=== PATIENT | male | born 1950 | race Caucasian/White ===

== ENCOUNTER 2017-09-01 08:07 | Day surgery (SDC) | payer OTHER ==
[2017-09-01] MEDS ORDERED: NS 1,000 ML IV ONE (08:15)
[2017-09-01] MEDS ORDERED: FAMOTIDINE 20 MG TAB PO ONE (08:15)
[2017-09-01] MEDS ORDERED: DIAZEPAM 5 MG TAB PO ONE (08:15)
[2017-09-01] MEDS ORDERED: ASPIRIN EC 325 MG TAB PO ONE ×2 (08:15→08:40)
[2017-09-01] MEDS ORDERED: diphenhydrAMINE 25 MG CAP PO ONE ×2 (08:15→08:40)
[2017-09-01] MEDS ORDERED: DIAZEPAM 5 MG TAB ONE (08:40)
[2017-09-01] MEDS ORDERED: FAMOTIDINE 20 MG TAB ONE (08:40)
--- NOTE | 2017-09-01 08:40 | CPEKG ---
Heart Rate: 60 RR Interval: 1000 P-R Interval: 168 QRSD Interval: 124 QT Interval: 416 QTC Interval: 416 P [place]: 12 QRS [place]: 47 T Wave [place]: -20 EKG Severity - ABNORMAL ECG - EKG Impression: SINUS RHYTHM EKG Impression: NONSPECIFIC INTRAVENTRICULAR CONDUCTION DELAY EKG Impression: PROBABLE INFERIOR INFARCT, AGE INDETERMINATE EKG Impression: PROBABLE LATERAL INFARCT, OLD EKG Impression: COMPARED WITH 08/27/2017 NO SIGNIFICANT CHANGE Electronically Signed By: Marilu Hines 02-Sep-2017 10:13:09
[2017-09-01 09:22] LABS: PLATELET COUNT 162 10^3/uL (150-400)
[2017-09-01 09:30] LABS: INR 1.08 (0.83-1.16); PROTIME(PATIENT) 14.2 SEC (12.0-15.0)
[2017-09-01] MEDS ORDERED: LIDOCAINE 1% 300 MG/30 ML SDV ONE (09:48)
[2017-09-01] MEDS ORDERED: fentaNYL 100 MCG/2 ML INJ ONE (09:49)
[2017-09-01] MEDS ORDERED: MIDAZOLAM 2 MG/2 ML VIAL ONE ×2 (09:49→09:50)
[2017-09-01] MEDS ORDERED: IOPAMIDOL (ISOVUE-370) 150 ML BTL IV ONE (09:50)
[2017-09-01] MEDS ORDERED: VERAPAMIL 5 MG/2 ML VIAL ONE (09:50)
[2017-09-01] MEDS ORDERED: HEPARIN 10,000 UNIT/10 ML MDV (1,000 UNIT/ML) ONE (09:50)
--- NOTE | 2017-09-01 09:58 | PDHPUP ---
History & Physical Update H&P update statement: This history and physical update is based on an assessment of the patient which was completed after admission or registration (within 24 hours), but prior to the surgery/procedure. H&P update: H&P reviewed & patient examined, no change in patient's condition since H&P completed
--- NOTE | 2017-09-01 09:59 | PDPROPOC ---
Sedation Plan of Care Sedation Plan of Care: vital signs stable, mental status noted, patient educated of risks, benefits, alternatives, patient can tolerate sedation ASA Classification: ASA 3 Planned drugs: fentanyl, midazolam Mallampati Score: Class 2 Mallampati Reference Image: Patient passed 3-3-2 rule?: Yes
[2017-09-01] MEDS ORDERED: BIVALIRUDIN 250 MG/5 ML VIAL IV ONE (10:38)
[2017-09-01] MEDS ORDERED: ATROPINE SULFATE 1 MG/10 ML SYR IVP PRN (11:20)
[2017-09-01] MEDS ORDERED: NITROGLYCERIN 0.4 MG BTL SL PRN (11:20)
[2017-09-01] MEDS ORDERED: ONDANSETRON 4 MG/2 ML VIAL IVP PRN (11:20)
--- NOTE | 2017-09-01 11:36 | PDDXCAT ---
Diagnostic Cath Note - . Date: 09/01/17 Mill Feeder: Dylan Indication: CCC Class III and IV angina on medical treatment, High-risk criteria on noninvasive testing (choose option below) High-risk criteria on non-invasive testing: stress-induced large perfusion defect (particularly if anterior) - Procedure Access: right groin Procedure: left heart catheterization, coronary angiography, left ventriculogram - Materials Left Heart Cath size: 6F Left Heart Cath materials: standard multipack (JL4, JR4, pigtail) - Findings-Left Heart Catheterization LM: Normal. LAD: Mid-LAD has a "napkin-ring" stenosis of 60-70% just after origin of third diagonal branch. Second diagonal branch has a high-grade ostial stenosis. LCX: Small system with mild irregularities. RCA: Proximal RCA 100% with vigorous felz-ea-vltas collateral supply to distal vessel. LVEF: 45-50% Wall motion: Severe inferior hypokinesis. Complications: None Closure method: Angioseal Assessment: 1) Ischemic cardiomyopathy with mildly reduced LV systolic function. 2) Coronary artery disease as described above. Plan: Will schedule patient to see CT surgery in clinic to discuss CABG.
== END 2017-09-01 15:43 | disposition home or self-care (01) ==
LOC: FCATH 08:07
PROVIDERS: ATTEND Internal Medicine Interventional Cardiology
PROC: 4A023N7 Measurement of Cardiac Sampling and Pressure, Left Heart, Percutaneous Approach (ICD-10-PCS; principal; 2017-09-01)
PROC: B2151ZZ Fluoroscopy of Left Heart using Low Osmolar Contrast (ICD-10-PCS; principal; 2017-09-01)
PROC: B2111ZZ Fluoroscopy of Multiple Coronary Arteries using Low Osmolar Contrast (ICD-10-PCS; principal; 2017-09-01)
DX: I25.5 Ischemic cardiomyopathy (principal); I25.119 Atherosclerotic heart disease of native coronary artery with unspecified angina pectoris; R94.39 Abnormal result of other cardiovascular function study; I10 Essential (primary) hypertension; E78.5 Hyperlipidemia, unspecified; E11.9 Type 2 diabetes mellitus without complications; G47.33 Obstructive sleep apnea (adult) (pediatric); R16.1 Splenomegaly, not elsewhere classified; I87.2 Venous insufficiency (chronic) (peripheral); N40.0 Benign prostatic hyperplasia without lower urinary tract symptoms; K21.9 Gastro-esophageal reflux disease without esophagitis; M10.9 Gout, unspecified; Z79.82 Long term (current) use of aspirin; Z79.84 Long term (current) use of oral hypoglycemic drugs; Z82.49 Family history of ischemic heart disease and other diseases of the circulatory system; Z82.3 Family history of stroke; Z95.5 Presence of coronary angioplasty implant and graft
CPT/HCPCS: C1760; J0583; J1644; J2250; J3010; Q9967

== ENCOUNTER → 2017-09-26 | Outpatient (CLI) | payer OTHER | LOC: FIMAGING 13:54 | PROVIDERS: ATTEND Thoracic Surgery (Cardiothoracic Vascular Surgery) | DX: Z03.89 Encounter for observation for other suspected diseases and conditions ruled out (principal) ==

== ENCOUNTER 2017-09-28 05:40 | Inpatient (IN) | payer OTHER ==
[2017-09-28] MEDS ORDERED: VERAPAMIL 5 MG, NITROGLYCERIN 2.5 MG, HEPARIN 500 UNIT, SODIUM BICARBONATE 0.2 MEQ in L... MISC ONE (06:00)
[2017-09-28] MEDS ORDERED: AMINOCAPROIC ACID 5 GM/20 ML VIAL IV ONE (06:00)
[2017-09-28] MEDS ORDERED: NOREPINEPHRINE BITARTRATE 16 MG in NS 250 ML IV ONE (06:00)
[2017-09-28] MEDS ORDERED: INSULIN REGULAR HUMAN 100 UNIT in NS 100 ML IV ONE (06:00)
[2017-09-28] MEDS ORDERED: MANNITOL 25% 12.5 GM/50 ML VIAL IVP ONE (06:00)
[2017-09-28] MEDS ORDERED: SODIUM BICARBONATE 20 MEQ, LIDOCAINE 1% 10 ML in NORMOSOL-R 1,000 ML MISC ONE (06:00)
[2017-09-28] MEDS ORDERED: PHENYLEPHRINE HCL 50 MG in NS 250 ML IV ONE (06:00)
[2017-09-28] MEDS ORDERED: LIDOCAINE 1% 2 ML INJ ID PRN (06:17)
[2017-09-28] MEDS ORDERED: LR 1,000 ML IV ONE (06:17)
[2017-09-28] MEDS ORDERED: CITRATE DEXTROSE SOLN 500 ML BAG MISC ONE (06:17)
[2017-09-28] MEDS ORDERED: ceFAZolin 2 GM/DEXTROSE 100 ML IV ONE (06:17)
[2017-09-28] MEDS ORDERED: niCARdipine/NACL 200 ML IV ONE (06:17)
[2017-09-28] MEDS ORDERED: MUPIROCIN 2% 22 GM OINT NS ONE (06:17)
[2017-09-28] MEDS ORDERED: CARBOXYMETHYLCELLULOSE 1% 0.4 ML DROPERETTE EACHEYE PRN (06:25)
[2017-09-28] MEDS ORDERED: SODIUM CL NASAL GEL 14.1 GM TUBE TP PRN (06:25)
--- NOTE | 2017-09-28 06:28 | PDHPUP ---
History & Physical Update H&P update statement: This history and physical update is based on an assessment of the patient which was completed after admission or registration (within 24 hours), but prior to the surgery/procedure. H&P update: H&P reviewed & patient examined, changes noted (daily exertional angina relieved by rest, no NTG taken. Increased edema of low legs, R>L. No assoc wt gain, orthopnea, PND, inc dyspnea)
[2017-09-28] MEDS ORDERED: NA BICARBONATE 50 MEQ/50 ML VIAL ONE (06:37)
[2017-09-28] MEDS ORDERED: PROTAMINE SULFATE 50 MG/5 ML VIAL IVP ONE (06:37)
[2017-09-28] MEDS ORDERED: MILRINONE/DEXTROSE/100 ML BAG IV ONE (06:37)
[2017-09-28] MEDS ORDERED: CALCIUM CHLORIDE 1 GM/10 ML INJ ONE ×2 (06:37→06:40)
[2017-09-28] MEDS ORDERED: HEPARIN 10,000 UNIT/10 ML MDV (1,000 UNIT/ML) ONE ×2 (06:38→06:41)
[2017-09-28] MEDS ORDERED: DOPamine/DEXTROSE 400 MG/250 ML BAG IV ONE (06:38)
[2017-09-28] MEDS ORDERED: niCARdipine/NACL/200 ML BAG IV ONE (06:38)
[2017-09-28] MEDS ORDERED: AMIODARONE HCL 150 MG/3 ML VIAL ONE ×2 (06:39→06:41)
[2017-09-28] MEDS ORDERED: ceFAZolin 1 GM VIAL ONE (06:39)
[2017-09-28] MEDS ORDERED: ADENOSINE 6 MG/2 ML VIAL ONE (06:39)
[2017-09-28] MEDS ORDERED: NITROGLYCERIN/D5W 50 MG/250 ML BOTTLE IV ONE (06:39)
[2017-09-28] MEDS ORDERED: ALBUMIN 5% 250 ML BOTTLE IV ONE (06:40)
[2017-09-28] MEDS ORDERED: LIDOCAINE 2% 100 MG/5 ML SYR ONE (06:40)
[2017-09-28] MEDS ORDERED: CITRATE DEXTROSE SOLN 500 ML BAG ONE (06:41)
[2017-09-28] MEDS ORDERED: MAGNESIUM SULFATE 1 GM/2 ML VIAL ONE (06:41)
[2017-09-28] MEDS ORDERED: methylPREDNISolone SOD SUCC 1 GM/8 ML VIAL ONE (06:41)
[2017-09-28] MEDS ORDERED: MINERAL OIL 10 ML VIAL ONE (06:42)
[2017-09-28] MEDS ORDERED: VERAPAMIL 5 MG/2 ML VIAL ONE (06:42)
[2017-09-28] MEDS ORDERED: PAPAVERINE HCL 60 MG/2 ML SDV ONE (06:42)
[2017-09-28] MEDS ORDERED: MIDAZOLAM 2 MG/2 ML VIAL IVP ONE (06:53)
--- NOTE | 2017-09-28 07:03 | PDANEPAE ---
ANE History of Present Illness here for CABG ANE Past Medical History - Cardiovascular History Hx Hypertension: Yes Hx Arrhythmias: No Hx Chest Pain: No Hx Coronary Artery / Peripheral Vascular Disease: Yes Hx CHF / Valvular Disease: No Hx Palpitations: No Cardiovascular History Comment: increased chest pressure daily since cardiac cath - Pulmonary History Hx COPD: No Hx Asthma/Reactive Airway Disease: No Hx Recent Upper Respiratory Infection: No Hx Oxygen in Use at Home: No Hx Sleep Apnea: Yes Sleep Apnea Screening Result - Last Documented: Positive Pulmonary History Comment: hx of chronic broncitis - Neurologic History Hx Cerebrovascular Accident: No Hx Seizures: No Hx Dementia: No - Endocrine History Hx Diabetes: Yes Hypothyroid: No Hyperthyroid: No Endocrine History Comment: type 11 - Renal History Hx Renal Disorders: No - Liver History Hx Hepatic Disorders: No - Neurological & Psychiatric Hx Hx Neurological and Psychiatric Disorders: No - Cancer History Hx Cancer: No - Congenital Disorder History Hx Congenital Disorders: Yes Congenital History Comment: lower extremity edema - GI History Hx Gastrointestinal Disorders: No - Other Health History Other Health History: enlarged spleen - Chronic Pain History Chronic Pain: Yes (knee problems) - Surgical History Prior Surgeries: megacolon sx 2002. cardiac cath 2018 ANE Review of Systems Review of systems is: negative Review of Systems: - Exercise capacity METS (RN): 4 METS ANE Patient History - Allergies Allergies/Adverse Reactions: morphine Allergy (Verified 09/28/17 06:45) Other-Enter Comments - Home Medications Home medications: home medication list seen and reviewed Home Medications: Carvedilol [Coreg (*)] 25 mg PO BIDMEAL 08/27/15 [Last Taken 09/27/17 16:00] Glimepiride [Amaryl 2 MG (*)] 2 mg PO DAILY 08/27/15 [Last Taken 09/27/17 08:00] Lisinopril [Zestril 40 mg (*)] 40 mg PO HS 08/27/15 [Last Taken 09/27/17 16:00] [place]-3 Fatty Acids [Fish Oil 1000 mg (*)] 1,000 mg PO BID 08/27/15 [Last Taken 09/27/17 17:00] Potassium Cl [Klor-Con 10 meq (RX)] 10 meq PO HS 08/27/15 [Last Taken 09/27/17 16:00] Tamsulosin HCl [Flomax 0.4 MG (*)] 0.8 mg PO DAILY 08/27/15 [Last Taken 08:00] Atorvastatin Calcium [Lipitor 40 mg (*)] 80 mg PO HS 08/25/17 [Last Taken 16:00] Carboxymethylcellulose 1% [Refresh Celluvisc (*)] 1 drop EACHEYE DAILY PRN 08/25 [Last Taken 09/28/17 04:00] Clopidogrel Bisulfate [Plavix (*)] 75 mg PO HS 08/25/17 [Last Taken 08/31/17 21: 00] Furosemide [Lasix 40 MG (*)] 60 mg PO DAILY 08/25/17 [Last Taken 09/27/17 08:00] Isosorbide Mononitrate [Imdur 30 mg (*)] 30 mg PO DAILY 08/25/17 [Last Taken 07/12 08:00] Naproxen Sodium [Aleve 220 MG (*)] 220 mg PO BID PRN 08/25/17 [Last Taken 21:00] Nitroglycerin [Nitrostat 0.4 mg (*)] 0.4 mg SL Q5M PRN 08/25/17 [Last Taken Unknown] metFORMIN HCL [Glucophage 1000 mg] 1,000 mg PO BIDMEAL 09/01/17 [Last Taken 05/14] Aspirin [Aspirin 81mg (*)] 81 mg PO DAILY 09/20/17 [Last Taken 09/27/17 08:00] Herbals/Supplements -Info Only 1 ea PO DAILY 09/20/17 [Last Taken 09/27/17 16:00 ] Sodium Chloride [[place]] 1 spray NS BID PRN 09/20/17 [Last Taken 09/27/17 21:00] - NPO status NPO Status: no food or drink >8 hours NPO Since - Liquids (Date): 09/27/17 NPO Since - Liquids (Time): 20:00 NPO Since - Solids (Date): 09/27/17 NPO Since - Solids (Time): 20:00 - Smoking Hx Smoking Status: Never smoked - Family Anes Hx Family Hx Anesthesia Complications: none ANE Labs/Vital Signs - Vital Signs Vital Signs: reviewed preoperatively; see RN documention for details Blood Pressure: 160/94 Heart Rate: 59 Respiratory Rate: 12 O2 Sat (%): 95 Height: 173.99 cm Weight: 99.79 kg ANE Physical Exam - Airway Neck exam: FROM Mallampati Score: Class 1 Mouth exam: normal dental/mouth exam - Pulmonary Pulmonary: no respiratory distress - Cardiovascular Cardiovascular: regular rate and rhythym - ASA Status ASA Status: IV ANE Anesthesia Plan Anesthesia Plan: general endotracheal anesthesia Lines/Monitors: arterial line, central line, HIGINIO
[2017-09-28] MEDS ORDERED: fentaNYL 250 MCG/5 ML INJ ONE (07:05)
[2017-09-28] MEDS ORDERED: PROPOFOL/EMULSION 500 MG/50 ML BOTTLE IV ONE (07:08)
[2017-09-28] MEDS ORDERED: PHENYLEPHRINE HCL 100 MCG/ML SYR ONE (07:09)
[2017-09-28] MEDS ORDERED: ESMOLOL HCL 100 MG/10 ML VIAL IV ONE (07:09)
[2017-09-28] MEDS ORDERED: ROCURONIUM 100 MG/10 ML VIAL ONE (07:09)
[2017-09-28] MEDS ORDERED: DEXAMETHASONE 4 MG/ML VIAL ONE ×2 (08:20→10:32)
[2017-09-28] MEDS ORDERED: DEXMEDETOMIDINE HCL 400 MCG in NS 100 ML IV ONE (11:00)
[2017-09-28] MEDS ORDERED: DEXMEDETOMIDINE IN 0.9 % NACL 100 ML IV ONE (11:00)
[2017-09-28] MEDS ORDERED: PROPOFOL 200 MG/20 ML VIAL ONE (11:01)
[2017-09-28] MEDS ORDERED: HYDROmorphONE/DILAUDID 2 MG/ML INJ ONE (11:20)
[2017-09-28] MEDS ORDERED: ACETAMINOPHEN 650 MG SUPP PR PRN (12:08)
[2017-09-28] MEDS ORDERED: POTASSIUM Cl (KCl) 50 ML IV PRN (12:08)
[2017-09-28] MEDS ORDERED: BISACODYL 10 MG SUPP PR PRN (12:08)
[2017-09-28] MEDS ORDERED: METOCLOPRAMIDE 10 MG/2 ML VIAL IVP PRN (12:08)
[2017-09-28] MEDS ORDERED: POLYETHYLENE GLYCOL 3350 17 GM PKT PO PRN (12:08)
[2017-09-28] MEDS ORDERED: D50W 25 GM/50 ML SYR IVP PRN (12:08)
[2017-09-28] MEDS ORDERED: ONDANSETRON 4 MG/2 ML VIAL IVP PRN (12:08)
[2017-09-28] MEDS ORDERED: ONDANSETRON DISINTEGRATING 4 MG TAB PO PRN (12:08)
[2017-09-28] MEDS ORDERED: MAGNESIUM HYDROXIDE 30 ML UDCUP PO PRN (12:08)
[2017-09-28] MEDS ORDERED: LACTULOSE 20 GM/30 ML UDCUP PO PRN (12:08)
[2017-09-28] MEDS ORDERED: ACETAMINOPHEN 325 MG TAB PO PRN (12:08)
[2017-09-28] MEDS ORDERED: ALBUMIN 5% 250 ML IV PRN (12:08)
[2017-09-28] MEDS ORDERED: PANTOPRAZOLE SODIUM 40 MG VIAL IVP ONE (12:08)
[2017-09-28] MEDS ORDERED: CEPACOL LOZENGE PO PRN (12:08)
[2017-09-28] MEDS ORDERED: MEPERIDINE 25 MG/0.5 ML AMP IVP PRN (12:08)
[2017-09-28] MEDS ORDERED: NS 1,000 ML IV SCH (12:15)
[2017-09-28] MEDS ORDERED: INSULIN REGULAR HUMAN 100 UNIT in NS 100 ML IV SCH (12:30)
[2017-09-28] MEDS: fentaNYL 100 MCG/2 ML INJ IVP PRN ×2 (12:40→21:41)
--- NOTE | 2017-09-28 12:52 | CPEKG ---
Heart Rate: 57 RR Interval: 1053 P-R Interval: 188 QRSD Interval: 120 QT Interval: 484 QTC Interval: 472 P [place]: 45 QRS [place]: 12 T Wave [place]: -8 EKG Severity - ABNORMAL ECG - EKG Impression: SINUS RHYTHM EKG Impression: IVCD, CONSIDER ATYPICAL RBBB EKG Impression: PROBABLE INFERIOR INFARCT, AGE INDETERMINATE Electronically Signed By: Jann Richardson 05-Oct-2017 16:34:46
[2017-09-28] MEDS ORDERED: NITROGLYCERIN/DEXTROSE 250 ML IV PRN (13:00)
--- NOTE | 2017-09-28 13:14 | GOP ---
[f rep st] OPERATIVE REPORT DATE OF OPERATION: 09/28/2017 SURGEON: Jann Becerra DO AUDIO/VISUAL MANAGER: ARISTEO Li ANESTHESIOLOGIST: Robert Sahu MD PREOPERATIVE DIAGNOSIS: Congestive heart failure and ischemic heart disease with dilated cardiomyopa thy. POSTOPERATIVE DIAGNOSIS: Congestive heart failure and ischemic heart disease with dilated cardiomyop athy, with evidence of moderate to severe mitral insufficiency. PROCEDURE PERFORMED: 1. Coronary artery bypass grafting x3 with 3 arterial conduits, utilizing left internal mammary ni ry to the diagonal, right internal mammary artery to the left anterior descending, and left radial ar kanwal to the right coronary artery. 2. Ligate left atrial appendage. 3. Mitral valve repair with a #28 Physio annuloplasty ring. FINDINGS: The patient was noted to have severe 3-vessel disease and was referred for surgical interv ention. He was also noted to have moderate LV dysfunction. Intraoperative HIGINIO revealed more signifi cant mitral regurgitation than anticipated, at least moderate, with central regurgitation and evidenc e of mitral annular calcification. DESCRIPTION OF PROCEDURE: Consent was obtained from his son, Yoan, verbally, and we proceeded with surgery. Sternotomy was performed. Both mammaries were harvested. They were excellent 3 mm vessels with brisk flow. We also harvested the left radial artery, open with a Harmonic Scalpel. It was an excellent 3.5 mm, uniform excellent quality vessel. The arm was closed. The patient was then hepar inized and cannulated with bicaval cannulas. Cardiopulmonary bypass was begun. A cardioplegic arres t was obtained with antegrade cardioplegia, retrograde cardioplegia, topical hypothermia, and systemi c cooling. Initially, the left radial artery was grafted to the main right after the takeoff of the PDA, where it was a 3.5 mm vessel with thick wall, but adequate lumen. The proximal anastomosis was then brought off the ascending aorta in standard fashion with a cross-clamp on. We then proceeded wi th exposing the mitral valve through the right superior pulmonary vein. A retractor was placed. It was a small fibroelastic valve with no redundancy. There was central regurgitation with distention o f the ventricle. Circumferential annuloplasty sutures were placed. We then sized the patient for a #28 Physio ring, which was sutured in place without difficulty. Distention of the ventricle revealed no regurgitation. Left atrium was closed in standard fashion while rewarming was begun. We then gr afted an excellent quality left internal mammary artery to the diagonal, which was a 2.2 mm vessel, a nd tacked to the epicardium. We then brought the MERLE across the midline and grafted it to the dista l LAD beyond the takeoff of the 3rd diagonal, where it measured 2.5 mm. This was tacked to the epica rdium. The cross-clamp was then removed with suction on the ascending aortic vent. The patient was easily weaned from bypass. Echo revealed no regurgitation and no RANJIT or outflow tract obstruction. The heparin was reversed with protamine. The cannula was removed and oversewn. Four pacing wires, 2 pleural and 1 mediastinal drain were placed. The thymic fat and pericardium were reapproximated. T he sternum was closed in standard fashion. The patient was returned to ICU in stable condition. /[id number]/MODL
--- NOTE | 2017-09-28 13:52 | PDMN ---
Medical Necessity Medical necessity: MCG : S290 cardiac valve replacement or repair 5 days: [facility] only: Mitral Valve repair with #28 Physio -annuloplasty ring, CABG X 3. , Ligate L atrial appendage.
[2017-09-28] MEDS: ceFAZolin 2 GM/DEXTROSE 100 ML IV SCH ×2 (15:22→21:41)
[2017-09-28] MEDS ORDERED: KETOROLAC 30 MG/1 ML SDV IVP ONE (18:30)
--- NOTE | 2017-09-28 18:46 | POSTANESTH ---
Post Anesthetic Evaluation Cardiovascular Status: Normal, Stable Respiratory Status: Normal, Stable Level of Consciousness/Mental Status: Can Participate in Eval Pain Control: Adequate, Prn Tx Ordered Nausea/Vomiting Control: Adequate, Prn Tx Ordered Complications Possibly Related to Anesthesia: None Noted
[2017-09-28] MEDS: HYDROCODONE/APAP 5/325 TAB PO PRN (20:01)
[2017-09-28] MEDS ORDERED: FAMOTIDINE 20 MG/NACL 50 ML IV SCH (21:00)
[2017-09-28] MEDS ORDERED: CHLORHEXIDINE GLUCONATE 15 ML UDL PO SCH (21:00)
[2017-09-28] MEDS: MUPIROCIN 2% 22 GM OINT NS SCH (21:46)
[2017-09-29] MEDS: HYDROCODONE/APAP 5/325 TAB PO PRN ×6 (02:09→22:16)
[2017-09-29] MEDS: fentaNYL 100 MCG/2 ML INJ IVP PRN (02:12)
[2017-09-29] MEDS: ceFAZolin 2 GM/DEXTROSE 100 ML IV SCH ×3 (05:25→22:17)
[2017-09-29 05:52] LABS: PLATELET COUNT 96 10^3/uL (150-400)
[2017-09-29] MEDS: HEPARIN 5,000 UNIT/0.5 ML INJ SC SCH (05:53)
--- NOTE | 2017-09-29 06:36 | SOAPPROG ---
SOAP Progress Note Assessment/Plan: Assessment: POD#1 CABG x 3 (THOMPSON-D2, MERLE-LAD, LRA-distal RCA), Mitral valve annuloplasty #28 Physio ring, prophylactic endoloop ligation SOTO Sx severe CAD - s/p all arterial revascularization. Stable early postop course. IV NTG for radial artery antispasm prophylaxis well tolerated. No dysrhythmias. No significant volume overload. Secondary prevention with ASA, BB as allowed by BP, and statin when eating well. Radial artery prophylaxis to transition to CCB x 3 mo. Plavix and ISMN no longer necessary. ISCM with mildly decreased LV systolic fx - Improved LV systolic fx post revasc. Staggered intro of heart failure meds as tolerated. Moderate to severe MR - Presumed ischemic. Intraop HIGINIO finding. Amenable to ring annuloplasty. Antithrombotic prophylaxis with ASA alone. DM2, controlled - Preop A1c of 6%. Postop hyperglycemia managed with insulin gtt. Transition to SSI per ICU. Transition to OHAs per hospitalist. Acute expected blood loss anemia - Stable. No blood products required. MARLIN - Extubated without incident. Plan: Routine POD#1 orders re lines, drains, wires, orals and mobility. Transition IV NTG to amlodipine. Start diuresis. Tx to PCU. 09/29/17 06:28 Subjective: Comfortable. Tolerating sips and chips. No dizziness getting OOB. Objective: Vital Signs Temp Pulse Resp BP Pulse Ox 37 C 71 19 133/67 H 95 09/29/17 06:00 09/29/17 06:00 09/29/17 06:00 09/29/17 06:00 09/29/17 06:00 Laboratory Results 09/29/17 05:25 09/29/17 05:25 09/28/17 09/29/17 09/30/17 05:59 05:59 05:59 Intake Total 1597.8 Output Total 1670 Balance -72.2 Physical Exam - Physical Exam General Appearance: alert, no apparent distress Respiratory: crackles (diffuse), other (blakes y-d to pleurovac, serosang drainage, no air leak) Cardiac/Chest: regular rate, rhythm, friction rub, other (Sternum grossly stable. Sternotomy CDI.) Abdomen: normal bowel sounds, non-tender, soft Skin: warm/dry Extremities: swelling (1+), other (LUE CSM intact, radial arteriotomy CDI) ICD10 Worksheet Patient Problems: Problems Problem Status Onset CAD, multiple vessel Acute Ischemic mitral regurgitation Acute S/P CABG x 3 Acute ~09/28/17 Status post mitral valve annuloplasty Acute ~09/28/17 Chronic venous insufficiency Chronic Obesity (BMI 30.0-34.9) Chronic Type 2 diabetes mellitus Chronic
[2017-09-29] MEDS ORDERED: FUROSEMIDE 20 MG/2 ML VIAL IVP ONE (07:34)
[2017-09-29] MEDS ORDERED: POTASSIUM CL 10 MEQ TAB PO ONE (07:35)
[2017-09-29] MEDS: PANTOPRAZOLE SODIUM 40 MG TAB PO SCH (08:16)
[2017-09-29] MEDS: TAMSULOSIN HCL 0.4 MG CAP PO SCH (08:16)
[2017-09-29] MEDS: ASPIRIN 81 MG CHEWABLE TAB PO SCH (08:17)
[2017-09-29] MEDS: MUPIROCIN 2% 22 GM OINT NS SCH ×2 (08:17→23:45)
[2017-09-29] MEDS: traMADol 50 MG TAB PO PRN (08:47)
[2017-09-29] MEDS ORDERED: ASPIRIN 81 MG CHEWABLE TAB TUBE PRN (12:09)
--- NOTE | 2017-09-29 12:27 | ASMTCMCOM ---
CM Note CM Note Notes: Patient is POD #1 CABG x3. He has orders to transfer from the ICU to the PCU. Patient lives alone but has a supportive son, daughter, and brother. He is open to the ideal of a short term SNF rehab stay if that is recommended for discharge. We discussed [facility]. PT/OT will work with patient over the next few days and make recommendations, as will cardiothoracic surgery. Case Management will facilitate whatever services that patient needs. Date Signed: 09/29/2017 12:26 PM Electronically Signed By:Devora Cook RN
[2017-09-29] MEDS: POTASSIUM CL 20 MEQ TAB PO SCH ×2 (14:16→22:17)
[2017-09-29] MEDS: FUROSEMIDE 40 MG/4 ML VIAL IVP SCH (14:17)
[2017-09-29] MEDS: metFORMIN HCL 500 MG TAB PO SCH (17:36)
--- NOTE | 2017-09-29 17:52 | GCON ---
[f rep st] CONSULTATION DATE OF CONSULTATION: 09/29/2017 REQUESTING PHYSICIAN: Dr. Becerra, Cardiovascular Surgery. CHIEF COMPLAINT: Diabetes management. HISTORY OF PRESENT ILLNESS: The patient is a pleasant 67-year-old gentleman with a past medical hist ory of coronary artery disease, admitted to the hospital on 09/28/2017, in anticipation of triple-ves rufus coronary artery bypass grafting. The hospital service was asked to consult on the case primarily in regard to his diabetes management. The patient has been managed in the outpatient setting on ora l medications with metformin at 1000 mg twice a day as well as glimepiride 2 mg daily. He states he recalls a recent hemoglobin A1c reading in the 6 range. Here, during this hospitalization, his gluco se readings have been well controlled ranging from 116-132. He is currently being managed with a sli ding scale insulin. He has had no hypoglycemic episodes during this hospitalization. PAST MEDICAL HISTORY: 1. Coronary artery disease. 2. Hypertension. 3. Obstructive sleep apnea. 4. Diabetes mellitus, type 2. 5. Hyperlipidemia. 6. Gout. PAST SURGICAL HISTORY: 1. Appendectomy. 2. Hernia repair. 3. Partial colectomy. 4. Vasectomy. MEDICATIONS: His active medications include: 1. Amlodipine 2.5 mg daily. 2. Aspirin 81 mg daily. 3. Atorvastatin 80 mg nightly. 4. Dulcolax 10 mg per rectum daily as needed for constipation. 5. Coreg 3.125 mg twice a day. 6. Cefazolin 2 g every 8 hours. 7. Lasix 40 mg twice a day. 8. Heparin 5000 units subcu q.8 hours for DVT prophylaxis, currently on hold. 9. Hydrocodone/acetaminophen 5/325 one to two tablets every 4 hours as needed. 10. Lispro sliding scale t.i.d. a.c. 11. Lactulose 20 g 3 times a day as needed. 12. Magnesium hydroxide 30 mL daily as needed. 13. Metformin 500 mg twice a day. 14. Pantoprazole 40 mg daily. 15. Flomax 0.8 mg daily. ALLERGIES: Morphine causes hypoxia. FAMILY HISTORY: Father from a heart attack at the age of 36. His brother also has a history of a stroke. SOCIAL HISTORY: The patient is currently , he has 2 children. He is a tobacco user. Does n ot drink alcohol. REVIEW OF SYSTEMS: CONSTITUTIONAL: No complaints of any fevers or chills. ENT: No recent upper re spiratory illnesses. CARDIOVASCULAR: No complaints of any chest pain or pressure. No palpitations or syncope. RESPIRATORY: No complaints of shortness of breath or productive cough. GI: He does millard ve some epigastric pain where his surgical drains are in place. Otherwise, no nausea, vomiting, diar sanjay. No bowel movement since admission to the hospital. NEUROLOGIC: No complaints of any headache s or focal weakness. HEMATOLOGIC: No history of any deep vein thrombosis or pulmonary embolism. PS YCHIATRIC: No history of anxiety or depression. ENDOCRINE: No other endocrine abnormalities other than his diabetes mellitus type 2. SKIN: No new skin rashes. MUSCULOSKELETAL: No focal joint pain s. PHYSICAL EXAM: VITAL SIGNS: Temperature 37.1, blood pressure 149/79, heart rate 68, respirations 16 , saturating 94% on 2 L nasal cannula. GENERAL: Patient appears comfortable. He is resting comfort ably, arousable, no acute distress. HEENT: Extraocular movements appear intact. No scleral icterus noted. NECK: Supple. No thyroid enlargement appreciated. CHEST: Clear to auscultation with norm al respiratory effort. HEART: Soft heart sounds, regular. No murmurs appreciated. ABDOMEN: Surgi shad drains in place with serosanguineous fluid. Nondistended, nontender. Normal bowel sounds. Midl ine incision appears well-healed. : No Cash catheter in place. EXTREMITIES: Compression stocki ngs both lower extremities in place. No calf pain with palpation. NEUROLOGIC: Cranial nerves 2-12 appear grossly intact. LABS: White blood cell count 11, hemoglobin 11, platelets 96. Sodium 137, potassium 4.1, chloride 1 11, bicarb 23, BUN 18, creatinine 0.8, glucose of 132. ASSESSMENT/PLAN: 1. Diabetes mellitus type 2, reportedly well controlled with a recent hemoglobin A1c measuring at 6% . We will recheck tomorrow morning for reassessment. His glucose readings here in the hospital look very well controlled. I think at this point time, we can reintroduce metformin although I will rein troduce it at 500 mg twice a day for now. Continue with sliding scale insulin t.i.d. a.c. At the ti me of discharge, I would anticipate stopping the sliding scale and reintroducing the glimepiride 2 mg daily that he uses as an outpatient and continuing his metformin at 1000 mg twice a day. 2. Coronary artery disease. The patient is status post 3-vessel coronary artery bypass graft. Curr ently, is not having any chest discomfort or respiratory complaints. Continue with current medical m anagement in place. 3. Acute hypoxic respiratory failure, likely secondary to atelectasis. Continue supplemental oxygen as needed. Incentive spirometry. 4. Thrombocytopenia, mild. Will recheck again tomorrow morning to trend. 5. Hypertension. Continue with current antihypertensives in place. Follow blood pressures closely over the next 24-48 hours. 6. Hyperlipidemia. The patient is on high-dose statin therapy. 7. Deep venous thrombosis prophylaxis. Heparin is currently on hold. We anticipate starting tomorr ow unless any decrease in hemoglobin. 8. Disposition: The patient is a full code status. I appreciate the opportunity to help out in this patient's care. Will follow along during this hospi talization. /[id number]/MODL
[2017-09-29] MEDS ORDERED: CARVEDILOL 3.125 MG TAB PO SCH (18:00)
[2017-09-29] MEDS: INSULIN LISPRO 100 UNIT/ML SC SCH (18:50)
[2017-09-30] MEDS: HYDROCODONE/APAP 5/325 TAB PO PRN ×5 (04:19→18:53)
--- NOTE | 2017-09-30 07:27 | SOAPPROG ---
SOAP Progress Note Assessment/Plan: POD#2: CABG x 3 (THOMPSON-D2, MERLE-LAD, LRA-distal RCA), Mitral valve annuloplasty # 28 Physio ring, prophylactic endoloop ligation SOTO Sx severe CAD - s/p all arterial revascularization. Secondary prevention with ASA, BB as allowed by BP, and statin when eating well. Radial artery prophylaxis with CCB x 3 mo. Plavix no longer necessary. ISCM with mildly decreased LV systolic fx - Improved LV systolic fx post revasc. Staggered intro of heart failure meds as tolerated. Moderate to severe MR - Presumed ischemic. Intraop IHGINIO finding. Amenable to ring annuloplasty. Antithrombotic prophylaxis with ASA alone. DM2, controlled - Preop A1c of 6%. Postop hyperglycemia managed with insulin gtt. Transition to SSI per ICU. Transition to OHAs per hospitalist. Acute expected blood loss anemia - Stable. No blood products required. Subjective: Feels well. Denies SOB/CP. Objective: Vital Signs Temp Pulse Resp BP Pulse Ox 36.6 C 64 18 121/60 H 95 09/30/17 04:00 09/30/17 04:00 09/30/17 04:00 09/30/17 04:00 09/30/17 04:00 Laboratory Results 09/30/17 04:25 09/30/17 04:25 09/29/17 09/30/17 10/01/17 05:59 05:59 05:59 Intake Total 1697.8 1481 Output Total 1890 2045 150 Balance -192.2 -564 -150 Physical Exam - Physical Exam General Appearance: WD/WN, alert, no apparent distress EENT: No scleral icterus (R), No scleral icterus (L) Neck: normal inspection Respiratory: No respiratory distress Cardiac/Chest: regular rate, rhythm Abdomen: non-tender, soft, No distended Skin: normal color, warm/dry Extremities: pedal edema Neuro/Psych: no motor/sensory deficits, alert, normal mood/affect, oriented x 3 ICD10 Worksheet Patient Problems: Problems Problem Status Onset CAD, multiple vessel Acute Ischemic mitral regurgitation Acute S/P CABG x 3 Acute ~09/28/17 Status post mitral valve annuloplasty Acute ~09/28/17 Chronic venous insufficiency Chronic Obesity (BMI 30.0-34.9) Chronic Type 2 diabetes mellitus Chronic
[2017-09-30] MEDS: TAMSULOSIN HCL 0.4 MG CAP PO SCH (08:51)
[2017-09-30] MEDS: CARVEDILOL 6.25 MG TAB PO SCH ×2 (08:52→18:03)
[2017-09-30] MEDS: PANTOPRAZOLE SODIUM 40 MG TAB PO SCH (08:52)
[2017-09-30] MEDS: SENNOSIDES/DOCUSATE SODIUM TAB PO SCH ×2 (08:53→20:55)
[2017-09-30] MEDS: FUROSEMIDE 40 MG/4 ML VIAL IVP SCH ×2 (08:53→15:32)
[2017-09-30] MEDS: ASPIRIN 81 MG CHEWABLE TAB PO SCH (08:53)
[2017-09-30] MEDS: MUPIROCIN 2% 22 GM OINT NS SCH (09:11)
[2017-09-30] MEDS: INSULIN LISPRO 100 UNIT/ML SC SCH ×3 (09:13→18:04)
[2017-09-30] MEDS: metFORMIN HCL 500 MG TAB PO SCH ×3 (09:14→18:03)
[2017-09-30] MEDS: POTASSIUM CL 20 MEQ TAB PO SCH ×2 (10:17→20:55)
--- NOTE | 2017-09-30 13:00 | HOSPPROG ---
Hospitalist Progress Note Assessment/Plan: Subjective Follow-up on diabetes mellitus type 2. No acute events overnight. Patient still complains of discomfort around the epigastrium at the site of his drains but nothing worsening overnight. No complaints of chest pain or shortness of breath. He is noting some abdominal discomfort and does have sense that he is going to have a bowel movement today. We reviewed his glucose readings here in the hospital and he reports a recent hemoglobin A1c that was well controlled 6. I discussed that we would resume his metformin at 1000 mg twice a day and continue with sliding scale insulin while he is here in the hospital but anticipate resuming his sulfonylurea once he is discharged from the hospital. Objective Vital signs as detailed below Exam General-patient appears comfortable he is sitting in a chair at the bedside no acute distress awake alert conversant Heart-regular no murmurs appreciated Lungs-Clear to auscultation with normal respiratory effort anteriorly Abdomen-soft nontender nondistended drains at the epigastrium appear in place no surrounding erythema at the insertion sites -no Cash catheter in place Extremities incision site at left forearm appears to be healing appropriately mild ecchymoses associated with it but no significant erythema Labs as detailed below Assessment and plan Diabetes mellitus type 2-controlled with recent hemoglobin A1c of 6%. Continue metformin a 1000 mg twice a day along with sliding scale insulin three times daily a.c.. I would recommend continuing with this regimen throughout the rest of the hospitalization and at the time of discharge then resume his so fine urea along with the metformin. Coronary artery disease-patient is status post triple-vessel bypass. He seems to be doing reasonably well postoperatively. Continue medical management to mitigate risk. Acute hypoxic respiratory failure-suspecting atelectasis as noted on chest imaging. Patient is using his incentive spirometer. Continue and wean oxygen as able. Thrombocytopenia-improving with platelets going from 96-149 thousand. Hypertension-elevated readings noted. His amlodipine was increased to 5 mg daily. He was previously on lisinopril as well at 40 mg daily. Will monitor closely next 24 hr with increasing the amlodipine but I anticipate will need to resume lisinopril as well. Hyperlipidemia-continue statin therapy DVT prophylaxis- heparin has been resumed. Disposition-continue work with PT and OT and can look at placement options depending on how he is doing. Objective: Vital Signs Temp Pulse Resp BP Pulse Ox 36.8 C 69 18 124/90 H 89 L 09/30/17 11:53 09/30/17 11:53 09/30/17 11:53 09/30/17 11:53 09/30/17 11:53 Laboratory Results 09/30/17 04:25 09/30/17 09:05 09/29/17 09/30/17 10/01/17 05:59 05:59 05:59 Intake Total 1697.8 1481 Output Total 1890 2045 790 Balance -192.2 -564 -790 ICD10 Worksheet Patient Problems: Problems Problem Status Onset CAD, multiple vessel Acute Ischemic mitral regurgitation Acute S/P CABG x 3 Acute ~09/28/17 Status post mitral valve annuloplasty Acute ~09/28/17 Chronic venous insufficiency Chronic Obesity (BMI 30.0-34.9) Chronic Type 2 diabetes mellitus Chronic
[2017-09-30] MEDS: HEPARIN 5,000 UNIT/0.5 ML INJ SC SCH ×2 (14:19→20:55)
[2017-10-01] MEDS: traMADol 50 MG TAB PO PRN (03:13)
--- NOTE | 2017-10-01 06:37 | SOAPPROG ---
SOAP Progress Note Assessment/Plan: POD#3: CABG x 3 (THOMPSON-D2, MERLE-LAD, LRA-distal RCA), Mitral valve annuloplasty # 28 Physio ring, prophylactic endoloop ligation SOTO Sx severe CAD - s/p all arterial revascularization. Secondary prevention with ASA, BB as allowed by BP, and statin. Radial artery prophylaxis with CCB x 3 mo. Plavix no longer necessary. All tubes/wires removed. ISCM with mildly decreased LV systolic fx - Improved LV systolic fx post revasc. Staggered intro of heart failure meds as tolerated. Moderate to severe MR - Presumed ischemic. Intraop HIGINIO finding. Amenable to ring annuloplasty. Antithrombotic prophylaxis with ASA alone. DM2, controlled - Preop A1c of 6%. Mgmt per hospitalist. Acute expected blood loss anemia - Stable. No blood products required. Subjective: Has some minor abdominal pain. Denies CP/SOB. Walking without issues. Objective: Vital Signs Temp Pulse Resp BP Pulse Ox 36.9 C 65 19 108/58 L 96 10/01/17 03:17 10/01/17 03:17 10/01/17 03:17 10/01/17 03:17 10/01/17 03:17 Laboratory Results 09/30/17 04:25 10/01/17 03:30 09/30/17 10/01/17 10/02/17 05:59 05:59 05:59 Intake Total 1481 500 Output Total 2044 2094 Balance -564 -0422 Physical Exam - Physical Exam General Appearance: WD/WN, alert, no apparent distress EENT: No scleral icterus (R), No scleral icterus (L) Neck: normal inspection Respiratory: No respiratory distress Cardiac/Chest: regular rate, rhythm Abdomen: non-tender, soft, No distended Skin: normal color, warm/dry Extremities: pedal edema Neuro/Psych: no motor/sensory deficits, alert, normal mood/affect, oriented x 3 ICD10 Worksheet Patient Problems: Problems Problem Status Onset CAD, multiple vessel Acute Ischemic mitral regurgitation Acute S/P CABG x 3 Acute ~09/28/17 Status post mitral valve annuloplasty Acute ~09/28/17 Chronic venous insufficiency Chronic Obesity (BMI 30.0-34.9) Chronic Type 2 diabetes mellitus Chronic
[2017-10-01] MEDS: SENNOSIDES/DOCUSATE SODIUM TAB PO SCH ×2 (08:27→20:00)
[2017-10-01] MEDS: PANTOPRAZOLE SODIUM 40 MG TAB PO SCH (08:27)
[2017-10-01] MEDS: FUROSEMIDE 40 MG/4 ML VIAL IVP SCH ×2 (08:27→15:11)
[2017-10-01] MEDS: amLODIPine BESYLATE 5 MG TAB PO SCH (08:27)
[2017-10-01] MEDS: POTASSIUM CL 20 MEQ TAB PO SCH ×2 (08:27→20:01)
[2017-10-01] MEDS: TAMSULOSIN HCL 0.4 MG CAP PO SCH (08:27)
[2017-10-01] MEDS: OMEGA-3 FATTY ACIDS 1,000 MG CAP PO SCH ×2 (08:27→20:01)
[2017-10-01] MEDS: metFORMIN HCL 500 MG TAB PO SCH ×2 (08:27→17:39)
[2017-10-01] MEDS: ASPIRIN 81 MG CHEWABLE TAB PO SCH (08:27)
[2017-10-01] MEDS: HEPARIN 5,000 UNIT/0.5 ML INJ SC SCH ×3 (08:30→21:34)
[2017-10-01] MEDS: HYDROCODONE/APAP 5/325 TAB PO PRN ×2 (08:31→20:00)
[2017-10-01] MEDS: CARVEDILOL 6.25 MG TAB PO SCH ×2 (08:31→17:36)
[2017-10-01] MEDS ORDERED: BISACODYL 10 MG SUPP PR ONE (08:45)
--- NOTE | 2017-10-01 08:57 | ASMTCMCOM ---
CM Note CM Note Notes: 10/01/2017 Case Management Note Reviewed chart. PT is recommending SNF rehab. Pt continues to recover from surgery. Case Management will determined d/c plan closer to discharge date. Case Management d/c poc: to be determined. Case Management to follow. Date Signed: 10/01/2017 08:56 AM Electronically Signed By:Daniela Portillo RN
[2017-10-01] MEDS: INSULIN LISPRO 100 UNIT/ML SC SCH ×3 (10:38→17:32)
[2017-10-01] MEDS: POLYETHYLENE GLYCOL 3350 17 GM PKT PO SCH (10:46)
--- NOTE | 2017-10-01 12:55 | ECHO ---
[email or web address] [address] Main: [phone] Fax: Transthoracic Echocardiogram Name: GENESIS RUIZ MR#: [id number] Study Date: 10/01/2017 Study Time: 10:26 AM Date of : 1950 Age: 67 year(s) Height: 172.7 cm (68 in.) Weight: 103.87 kg (229 lb.) BSA: 2.16 m2 Gender: Male Examination: Echo Indication: S/P CABG and MV repair with #28 ring Image Quality: Technically Difficult Contrast: Requested by: Bruce Mann BP: 108 mmHg/74 mmHg Heart Rate: Rhythm: Indication: S/P CABG and MV repair with #28 ring Procedure Staff Pigment Mixer: Jaimie Chris [facility] Reading Physician: Jacky Moscoso MD Requesting Provider: Conclusions: Grossly normal LV size and systolic function.. S/P MV repair. Normal gradient across the MV (2mmHg) and no significant mitral regurgitation noted. No pericardial effusion. Measurements: Chambers Valvular Assessment AV/MV Valvular Assessment TV/PV Normal Normal Normal Name Value Range Name Value Range Name Value Range IVSd (2D): 1.0 cm (0.6 cm-1.1 AV Vmax: 1.09 m/s (1 m/s-1.7 cm) m/s) LVDd (2D): 4.1 cm (4.2 cm-5.9 AV maxP mmHg ( - ) cm) LVOT Vmax: 1.00 m/s (0.7 m/s-1.1 LVDs (2D): 2.9 cm (2.1 cm-4 m/s) cm) MV meanP mmHg ( - ) LVPWd (2D): 1.1 cm (0.6 cm-1 MV PHT: 0.099 s ( - ) cm) MVA (PHT): 2.2 s ( - ) LVEF (2D): 55 (>=54 %) Continued Measurements: Chambers Valvular Assessment AV/MV Name Value Name Value LADs Lon.2 cm MV VTI: 37.60 cm LA Area: 21.2 cm2 Findings: Left Ventricle: Grossly normal LV size and systolic function.. Patient: GENESIS RUIZ Study Date: 10/01/2017 Page 1 of 2 10:26 AM Right Ventricle: Right ventricle not well visualized. Left Atrium: The left atrium is normal in size. Right Atrium: The right atrium is not well visualized. Mitral Valve: S/P MV repair. Normal gradient across the MV (2mmHg) and no significant mitral regurgitation noted. Aortic Valve: Aortic valve is not visualized. There is no aortic valve regurgitation. No aortic valve stenosis is present. Tricuspid Valve: Tricuspid valve not well visualized. Pulmonic Valve: Pulmonary valve not visualized. Pericardium: No pericardial effusion. (No Signature Object) Patient: GENESIS RUIZ Study Date: 10/01/2017 Page 2 of 2 10:26 AM [id number]
--- NOTE | 2017-10-01 16:45 | HOSPPROG ---
Hospitalist Progress Note Assessment/Plan: Subjective Follow-up on diabetes mellitus type 2. Patient was able to have his drain is removed today and states he is feeling more comfortable in the epigastrium. He is having some shoulder discomfort. No complaints of chest pains or difficulty breathing. Objective Vital signs as detailed below Exam General-patient appears comfortable sitting in a chair at the bedside no acute distress he is awake alert conversant Heart-regular no, no murmurs noted Lungs-Clear to auscultation with normal respiratory effort anteriorly Abdomen-soft nontender nondistended. Drains are removed from epigastrium -no Cash catheter in place Extremities-incision site left forearm healing appropriately with mild ecchymoses but stable as compared to yesterday's exam. No warmth or erythema noted Labs as detailed below Assessment and plan Diabetes mellitus type 2-controlled with a recent hemoglobin A1c of 6%. Continue metformin at 1000 mg twice a day along with sliding scale insulin 3 times a day fall here in the hospital. I would anticipate resuming her sulfonurea upon hospital discharge. Coronary artery disease-patient is status post triple-vessel bypass. He seems to be doing reasonably well after his surgery. Drains were removed today. Continue medical management. Acute hypoxic respiratory failure-suspecting atelectasis. Patient states he thinks he can breathe better since having the drains removed. Hypertension-improved readings today. Amlodipine was increased yesterday. Will not make any additions at this point time. He was previously on lisinopril at 40 mg daily. Hyperlipidemia-continue statin therapy. DVT prophylaxis-heparin. Disposition-continue work with PT and OT. Objective: Vital Signs Temp Pulse Resp BP Pulse Ox 36.6 C 65 18 109/59 L 97 10/01/17 15:25 10/01/17 15:25 10/01/17 15:25 10/01/17 15:25 10/01/17 15:25 Laboratory Results 09/30/17 04:25 10/01/17 03:30 09/30/17 10/01/17 10/02/17 05:59 05:59 05:59 Intake Total 1481 500 Output Total 2044 2094 200 Balance -564 -1595 -200 ICD10 Worksheet Patient Problems: Problems Problem Status Onset CAD, multiple vessel Acute Ischemic mitral regurgitation Acute S/P CABG x 3 Acute ~09/28/17 Status post mitral valve annuloplasty Acute ~09/28/17 Chronic venous insufficiency Chronic Obesity (BMI 30.0-34.9) Chronic Type 2 diabetes mellitus Chronic
[2017-10-01] MEDS: ATORVASTATIN CALCIUM 40 MG TAB PO SCH (20:01)
[2017-10-02] MEDS: HEPARIN 5,000 UNIT/0.5 ML INJ SC SCH ×3 (06:41→20:42)
--- NOTE | 2017-10-02 07:07 | SOAPPROG ---
SOAP Progress Note Assessment/Plan: POD#4: CABG x 3 (THOMPSON-D2, MERLE-LAD, LRA-distal RCA), Mitral valve annuloplasty # 28 Physio ring, prophylactic endoloop ligation SOTO Sx severe CAD - s/p all arterial revascularization. Secondary prevention with ASA, BB as allowed by BP, and statin. Radial artery prophylaxis with CCB x 3 mo. Plavix no longer necessary. All tubes/wires removed. ISCM with mildly decreased LV systolic fx - Improved LV systolic fx post revasc. Staggered intro of heart failure meds as tolerated. Moderate to severe MR - Presumed ischemic. Intraop HIGINIO finding. Amenable to ring annuloplasty. Antithrombotic prophylaxis with Coumadin, INR goal 2-3, 3 months. DM2, controlled - Preop A1c of 6%. Mgmt per hospitalist. Acute expected blood loss anemia - Stable. No blood products required. Subjective: Feels good. Denies pain/SOB. Objective: Vital Signs Temp Pulse Resp BP Pulse Ox 36.9 C 64 16 107/65 93 10/01/17 23:34 10/01/17 23:34 10/01/17 23:34 10/01/17 23:34 10/01/17 23:34 Laboratory Results 09/30/17 04:25 10/01/17 03:30 10/01/17 10/02/17 10/03/17 05:59 05:59 05:59 Intake Total 500 950 400 Output Total 2095 1200 200 Balance -1595 -250 200 Physical Exam - Physical Exam General Appearance: WD/WN, alert, no apparent distress EENT: No scleral icterus (R), No scleral icterus (L) Neck: normal inspection Respiratory: No respiratory distress Cardiac/Chest: regular rate, rhythm Abdomen: non-tender, soft, No distended Skin: normal color, warm/dry Extremities: pedal edema Neuro/Psych: no motor/sensory deficits, alert, normal mood/affect, oriented x 3 ICD10 Worksheet Patient Problems: Problems Problem Status Onset CAD, multiple vessel Acute Ischemic mitral regurgitation Acute S/P CABG x 3 Acute ~09/28/17 Status post mitral valve annuloplasty Acute ~09/28/17 Chronic venous insufficiency Chronic Obesity (BMI 30.0-34.9) Chronic Type 2 diabetes mellitus Chronic
[2017-10-02] MEDS: CARVEDILOL 6.25 MG TAB PO SCH ×2 (08:18→18:36)
[2017-10-02] MEDS: TAMSULOSIN HCL 0.4 MG CAP PO SCH (08:18)
[2017-10-02] MEDS: ASPIRIN 81 MG CHEWABLE TAB PO SCH (08:18)
[2017-10-02] MEDS: PANTOPRAZOLE SODIUM 40 MG TAB PO SCH (08:18)
[2017-10-02] MEDS: metFORMIN HCL 500 MG TAB PO SCH ×2 (08:18→18:35)
[2017-10-02] MEDS: INSULIN LISPRO 100 UNIT/ML SC SCH ×3 (08:19→18:28)
[2017-10-02] MEDS: amLODIPine BESYLATE 5 MG TAB PO SCH (08:19)
[2017-10-02] MEDS: POTASSIUM CL 20 MEQ TAB PO SCH ×2 (08:20→20:42)
[2017-10-02] MEDS: OMEGA-3 FATTY ACIDS 1,000 MG CAP PO SCH ×2 (08:20→20:42)
[2017-10-02] MEDS: SENNOSIDES/DOCUSATE SODIUM TAB PO SCH (08:21)
[2017-10-02] MEDS: POLYETHYLENE GLYCOL 3350 17 GM PKT PO SCH (08:22)
[2017-10-02] MEDS: FUROSEMIDE 40 MG/4 ML VIAL IVP SCH ×2 (10:21→15:40)
[2017-10-02] MEDS: GLIMEPIRIDE 2 MG TAB PO SCH (10:22)
[2017-10-02 14:55] LABS: INR 1.12 (0.83-1.16); PROTIME(PATIENT) 14.6 SEC (12.0-15.0)
--- NOTE | 2017-10-02 15:05 | ASMTCMCOM ---
CM Note CM Note Notes: 10/02/2017 Case Management Note Met w/pt to discuss discharge SNF rehab choices. Pt requested referrals to [facility]. Faxed via [facility]. [facility] in [place] accepted pt. [facility] declined pt. Case Management d/c poc: [facility] in [place] Case Management to follow. Date Signed: 10/02/2017 03:05 PM Electronically Signed By:Daniela Portillo RN
--- NOTE | 2017-10-02 15:58 | HOSPPROG ---
Hospitalist Progress Note Assessment/Plan: Subjective Follow-up on diabetes mellitus type 2. No acute events overnight patient continues to progress well after his surgery. Patient states he has mild shoulder pain but nothing significant wanting any pain medications. We discussed tentative plan to transition to short-term rehab tomorrow. Objective Vital signs as detailed below Exam General-patient appears comfortable sitting in chair at the bedside no acute distress awake alert conversant Cardiac-regular no murmurs appreciated Lungs clear to auscultation with normal respiratory effort Abdomen soft nontender nondistended normal bowel sounds no Cash catheter in place Extremities-incision site of left forearm appears stable again with mild ecchymoses but no significant warmth or erythema Labs as detailed below Assessment plan Diabetes mellitus type 2-controlled with a recent hemoglobin A1c of 6%. Continue metformin at 1000 mg twice a day along with sliding scale insulin 3 times a day fall here in the hospital. I would anticipate resuming his sulfonurea upon hospital discharge. Coronary artery disease-patient is status post triple-vessel bypass. He seems to be doing reasonably well after his surgery. Drains were removed. Continue medical management. Acute hypoxic respiratory failure-suspecting atelectasis. Patient states he thinks he can breathe better since having the drains removed. I took him off of oxygen during my evaluation and he was satting at he denies 90% on room air. Hypertension-improved readings today. Amlodipine was increased yesterday. Will not make any additions at this point time. He was previously on lisinopril at 40 mg daily. Blood pressures appear well controlled with the amlodipine and we may want to consider withholding or resuming lisinopril at a lower dose. Hyperlipidemia-continue statin therapy. DVT prophylaxis-heparin. Disposition-continue work with PT and OT. Objective: Vital Signs Temp Pulse Resp BP Pulse Ox 37.3 C 69 15 107/71 94 10/02/17 15:24 10/02/17 15:24 10/02/17 15:24 10/02/17 15:24 10/02/17 15:24 Laboratory Results 09/30/17 04:25 10/01/17 03:30 10/01/17 10/02/17 10/03/17 05:59 05:59 05:59 Intake Total 500 950 400 Output Total 2095 1200 1400 Balance -1595 -250 -1000 PT 14.6 SEC (12.0-15.0) 10/02/17 14:00 INR 1.12 (0.83-1.16) 10/02/17 14:00 ICD10 Worksheet Patient Problems: Problems Problem Status Onset CAD, multiple vessel Acute Ischemic mitral regurgitation Acute S/P CABG x 3 Acute ~09/28/17 Status post mitral valve annuloplasty Acute ~09/28/17 Chronic venous insufficiency Chronic Obesity (BMI 30.0-34.9) Chronic Type 2 diabetes mellitus Chronic
[2017-10-02] MEDS ORDERED: WARFARIN SODIUM 5 MG TAB PO ONE (16:00)
[2017-10-02] MEDS: HYDROCODONE/APAP 5/325 TAB PO PRN (18:36)
[2017-10-02] MEDS: ATORVASTATIN CALCIUM 40 MG TAB PO SCH (20:41)
[2017-10-02] MEDS ORDERED: SENNOSIDES/DOCUSATE SODIUM TAB PO PRN (21:00)
[2017-10-03] MEDS: HEPARIN 5,000 UNIT/0.5 ML INJ SC SCH ×3 (06:16→21:37)
[2017-10-03 06:40] LABS: INR 1.15 (0.83-1.16); PROTIME(PATIENT) 14.9 SEC (12.0-15.0)
[2017-10-03] MEDS ORDERED: AMIODARONE HCL 100 ML IV ONE (07:08)
[2017-10-03] MEDS ORDERED: AMIODARONE HCL 200 ML IV ONE (07:08)
[2017-10-03] MEDS: HYDROCODONE/APAP 5/325 TAB PO PRN ×3 (07:22→21:35)
--- NOTE | 2017-10-03 07:48 | SOAPPROG ---
SOAP Progress Note Assessment/Plan: Assessment: POD#5 CABG x 3 (THOMPSON-D2, MERLE-LAD, LRA-distal RCA), Mitral valve annuloplasty #28 Physio ring, prophylactic suture ligation SOTO Sx severe CAD - s/p all arterial revascularization. Stable early postop course. Tubes and wires out. Secondary prevention with ASA, BB, and statin. Radial artery antispasm prophylaxis with CCB x 3 mo. Plavix and ISMN no longer necessary. ISCM with mildly decreased LV systolic fx - Improved LV systolic fx post revasc. No significant volume overload. Actively diuresed with stable renal fx. Staggered intro of heart failure meds as tolerated. Moderate to severe MR - By intraop HIGINIO. Presumed ischemic. Amenable to ring annuloplasty. Antithrombotic prophylaxis with Coumadin x 3 mo. Target INR 2-3. Acute expected blood loss anemia - Stable. No blood products required. Postoperative SVT - AT vs Aflutter this am. No assoc hypotension. Started on amio as per protocol. DM2, controlled - Preop A1c of 6%. Postop hyperglycemia managed with insulin gtt. Transition to SSI per ICU. Transition to OHAs per hospitalist. MARLIN - Extubated without incident. Plan: IV amio as per protocol. Switch carvedilol to metop tartrate. Add 5 mg IV bolus prn sustained HR > 130. Ck BMP. Decr amlodipine to 2.5 mg daily. Stop diuresis. Coumadin 5 mg today. Dispo - SNF ([facility] in [place]) when rhythm stable. 10/03/17 07:43 Subjective: Feels well. Unaware of heart racing or rhythm in general. Objective: Vital Signs Temp Pulse Resp BP Pulse Ox 36.4 C 174 H 16 140/93 H 92 10/03/17 06:53 10/03/17 06:53 10/03/17 06:53 10/03/17 06:53 10/03/17 06:53 Laboratory Results 09/30/17 04:25 10/02/17 10/03/17 10/04/17 05:59 05:59 05:59 Intake Total 950 1200 Output Total 1200 2480 Balance -250 -1280 PT 14.9 SEC (12.0-15.0) 10/03/17 06:20 INR 1.15 (0.83-1.16) 10/03/17 06:20 Physical Exam - Physical Exam General Appearance: alert, no apparent distress Respiratory: lungs clear (grossly) Cardiac/Chest: regular rate, rhythm, other (Sternum grossly stable. Sternotomy CDI. Chest tube dressing intact.) Abdomen: non-tender, soft Skin: warm/dry Extremities: swelling (Trace - 1+ dependent. DANDRE hose intact.) ICD10 Worksheet Patient Problems: Problems Problem Status Onset CAD, multiple vessel Acute Ischemic mitral regurgitation Acute S/P CABG x 3 Acute ~09/28/17 Status post mitral valve annuloplasty Acute ~09/28/17 Chronic venous insufficiency Chronic Obesity (BMI 30.0-34.9) Chronic Type 2 diabetes mellitus Chronic
[2017-10-03] MEDS: METOPROLOL TARTRATE 5 MG/5 ML INJ IVP SCH ×3 (07:59→12:03)
[2017-10-03] MEDS ORDERED: POTASSIUM CL 20 MEQ TAB PO ONE (08:25)
[2017-10-03] MEDS: INSULIN LISPRO 100 UNIT/ML SC SCH ×3 (08:33→17:29)
[2017-10-03] MEDS ORDERED: POLYETHYLENE GLYCOL 3350 17 GM PKT PO PRN (09:00)
[2017-10-03] MEDS: metFORMIN HCL 500 MG TAB PO SCH ×2 (09:48→17:55)
[2017-10-03] MEDS: PANTOPRAZOLE SODIUM 40 MG TAB PO SCH (09:49)
[2017-10-03] MEDS: GLIMEPIRIDE 2 MG TAB PO SCH (09:49)
[2017-10-03] MEDS: TAMSULOSIN HCL 0.4 MG CAP PO SCH (09:50)
[2017-10-03] MEDS: ASPIRIN 81 MG CHEWABLE TAB PO SCH (09:50)
[2017-10-03] MEDS: OMEGA-3 FATTY ACIDS 1,000 MG CAP PO SCH ×2 (09:50→21:35)
[2017-10-03] MEDS: METOPROLOL TARTRATE 25 MG TAB PO SCH ×2 (09:50→21:36)
[2017-10-03] MEDS ORDERED: AMIODARONE HCL 540 MG in D5W 300 ML IV ONE (14:00)
--- NOTE | 2017-10-03 14:05 | HOSPPROG ---
Hospitalist Progress Note Assessment/Plan: 67 yo M with hx of severe CAD and DM2 sp CABG x 3, MV annuloplasty # Diabetes mellitus type 2-controlled with a recent hemoglobin A1c of 6%. Glucose here very well controlled on metformin, glimepiride. Has a sliding scale insulin order while in house that has not been needed x 2 days and will not need to be continued after discharge. # Coronary artery disease-patient is status post triple-vessel bypass. Drains removed, pain relatively well controlled. Continue asa, bb, statin. # VHD: with moderate to severe MR now s/p annuloplasty, f/u echo showing normal gradient and no MR # Acute hypoxic respiratory failure-suspecting atelectasis as well as splinting related to post op pain, has required very small amount of o2 intermittently, continue IS, mobility, CDB # post operative SVT: with runs of AT versus a flutter this morning, management per CT surgery, started on amio # Hypertension-currently with slightly low bp in setting of tachy-arrythmia, previously on lisinopril and has been on amlodipine in house, will monitor now on amio # HLD: continue statin # MARLIN: no significant issues while in house # DVT ppx: HSC # IP status, dc per CT surgery Patient new to my care. Old records reviewed and summarized as above. Subjective: no significant overnight events, patient notes pain well controlled , ambulating and eating without issues Objective: Vital Signs Temp Pulse Resp BP Pulse Ox 37.2 C 57 L 19 111/62 91 L 10/03/17 11:37 10/03/17 11:37 10/03/17 11:37 10/03/17 11:37 10/03/17 11:37 Laboratory Results 09/30/17 04:25 10/03/17 07:15 10/02/17 10/03/17 10/04/17 05:59 05:59 05:59 Intake Total 950 1200 520 Output Total 1200 2480 100 Balance -250 -1280 420 PT 14.9 SEC (12.0-15.0) 10/03/17 06:20 INR 1.15 (0.83-1.16) 10/03/17 06:20 awake and alert anicteric op clear rrr distant cta with dec bs at bases soft nt nd trace ble edema warm dry well perfused oriented appropriate ICD10 Worksheet Patient Problems: Problems Problem Status Onset CAD, multiple vessel Acute Ischemic mitral regurgitation Acute S/P CABG x 3 Acute ~09/28/17 Status post mitral valve annuloplasty Acute ~09/28/17 Chronic venous insufficiency Chronic Obesity (BMI 30.0-34.9) Chronic Type 2 diabetes mellitus Chronic
[2017-10-03] MEDS ORDERED: WARFARIN SODIUM 5 MG TAB PO ONE (16:00)
[2017-10-03] MEDS: ATORVASTATIN CALCIUM 40 MG TAB PO SCH (21:36)
[2017-10-04] MEDS: HEPARIN 5,000 UNIT/0.5 ML INJ SC SCH ×2 (05:53→12:30)
[2017-10-04 06:28] LABS: INR 1.28 (0.83-1.16); PROTIME(PATIENT) 16.2 SEC (12.0-15.0)
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
[2017-10-04 07:54] VITALS: BP 112/75
--- NOTE | 2017-10-04 08:41 | PDIAF ---
- Diagnosis Diagnosis: CAD, MR s/p CABG, mitral repair; postop PAF Code Status: Full Code - Medication Management Discharge Medications: Medications to Continue on Transfer Glimepiride [Amaryl 2 MG (*)] 2 mg PO DAILY 08/27/15 [Last Taken 09/27/17 08:00] [place]-3 Fatty Acids [Fish Oil 1000 mg (*)] 1,000 mg PO BID 08/27/15 [Last Taken 09/27/17 17:00] Tamsulosin HCl [Flomax 0.4 MG (*)] 0.8 mg PO DAILY 08/27/15 [Last Taken 08:00] Atorvastatin Calcium [Lipitor 40 mg (*)] 80 mg PO HS 08/25/17 [Last Taken 16:00] Carboxymethylcellulose 1% [Refresh Celluvisc (*)] 1 drop EACHEYE DAILY PRN 08/25 [Last Taken 09/28/17 04:00] Nitroglycerin [Nitrostat 0.4 mg (*)] 0.4 mg SL Q5M PRN 08/25/17 [Last Taken Unknown] metFORMIN HCL [Glucophage 1000 mg] 1,000 mg PO BIDMEAL 09/01/17 [Last Taken 05/14] Aspirin [Aspirin 81mg (*)] 81 mg PO DAILY 09/20/17 [Last Taken 09/27/17 08:00] Sodium Chloride [[place]] 1 spray NS BID PRN 09/20/17 [Last Taken 09/27/17 21:00] Acetaminophen [Tylenol 325mg (*)] 325 - 650 mg PO Q4HRS PRN tab 10/04/17 [Last Taken Unknown] Amiodarone HCl [[place] (*)] 200 mg PO BID tab 10/04/17 [Last Taken Unknown] Furosemide [Lasix 20 MG (*)] 20 mg PO DAILY tab 10/04/17 [Last Taken Unknown] Hydrocodone/APAP 5/325 [[place] 5/325 (*)] 1 - 2 tab PO Q4HRS PRN tab 10/04/17 [ Last Taken Unknown] Lisinopril [Zestril 2.5 mg (*)] 2.5 mg PO DAILY tab 10/04/17 [Last Taken Unknown] Metoprolol Tartrate [Lopressor 25 mg (*)] 25 mg PO BID tab 10/04/17 [Last Taken Unknown] Warfarin Sodium [Coumadin 5MG (*)] 5 mg PO DAILY AT 4PM tab 10/04/17 [Last Taken Unknown] amLODIPine BESYLATE [Norvasc 2.5 mg (*)] 2.5 mg PO DAILY tab 10/04/17 [Last Taken Unknown] Additional Medication Instructions: Amiodarone 200 mg BID thru 10/11, then 200 mg daily x 3 weeks. Coumadin as directed by INR. Target 2-3. Duration 3 months. [place] ok to take 1/2 tab for milder discomfort. Amlodipine 2.5 mg thru 12/30/17 Discharge Medications: Refer to the Discharge Home Medication list for PRN reason. PICC Care - Routine: N/A - Orders Services needed: Registered Nurse (cardioresp and therapeutic drug monitoring), Physical Therapy (sternal precautions x 4 weeks) Oxygen: prn SpO2 < 90% Diet Recommendation: sodium restricted (2,000 mg daily), ADA 2000 consistent carb Diet Texture: Regular Texture Diet Weigh Patient: daily Cash: Not applicable [place] Stockings Discontinue Date: Knee highs. On during day, off at night Additional Instructions: Please contact [facility] [phone] to schedule phase 2 classes once released from inpatient rehab Sternal precautions x 4 weeks. Avoid lifting > 10lbs with an outstretched arm. Avoid push/pull activities. Cleanse wounds once daily with soap and water. Avoid underwater immersion (pool , hot tub, bath) until scabs off. Ok to leave all wounds open to air. Avoid creams or ointments until scabs off. Elevate low legs at rest. Avoid prolonged standing or dangling. Call SendTask for overnight weight gain > 2lbs, weekly gain > 5lbs or worsening leg swelling. Call SendTask for resting heart rate > 120 or < 60 OR for systolic blood pressure consistently < 90 or > 140. Target oxygen saturation > 89%. Please obtain a chest xray prior to surgical appointment. Use requisition form attached to appointment card. Chest x-rays don't require an appointment. Go to the Emergency Room entrance at the [facility] location. Sign in at the computer kiosk in the entryway. You will be given a number and may sit in the waiting area until called. You will be registered and directed to the Imaging desk on the 1st floor. This process can take up to an hour. Allow at least 30 min before your appt to get x-ray taken. Ok to use [id number] medications for iron supplementation, bowel function or pain. Max daily dose of Tylenol 3000 mg. Avoid nonsteroidal anti-inflammatories (ibuprofen, advil, motrin) x 3 months for interference with beneficial effects of aspirin on graft flow. - Labs/Radiology PT/INR Date: 10/06/17 (2x weekly until INR stable in therapeutic range) Imaging Orders: chest xray prior to surgical appointment - Follow Up Care Current Providers and Referrals: Jann Becerra DO [Doctor of Osteopathy] - 10/10/17 2:00 pm Salty Mallory MD [Primary Care Provider] -
[2017-10-04] MEDS ORDERED: LISINOPRIL 2.5 MG TAB PO SCH (09:00)
[2017-10-04] MEDS ORDERED: FUROSEMIDE 20 MG TAB PO SCH (09:00)
[2017-10-04] MEDS ORDERED: AMIODARONE HCL 200 MG TAB PO SCH (09:00)
[2017-10-04] MEDS: ASPIRIN 81 MG CHEWABLE TAB PO SCH (09:09)
[2017-10-04] MEDS: GLIMEPIRIDE 2 MG TAB PO SCH (09:09)
[2017-10-04] MEDS: PANTOPRAZOLE SODIUM 40 MG TAB PO SCH (09:12)
[2017-10-04] MEDS: TAMSULOSIN HCL 0.4 MG CAP PO SCH (09:12)
[2017-10-04] MEDS: METOPROLOL TARTRATE 25 MG TAB PO SCH (09:12)
[2017-10-04] MEDS: OMEGA-3 FATTY ACIDS 1,000 MG CAP PO SCH (09:13)
[2017-10-04] MEDS: metFORMIN HCL 500 MG TAB PO SCH (09:13)
[2017-10-04] MEDS: INSULIN LISPRO 100 UNIT/ML SC SCH ×2 (09:40→12:29)
--- NOTE | 2017-10-04 09:59 | ASDISCHSUM ---
Discharge Information Plan Status:SNF Medically Cleared to Leave:10/04/2017 Discharge Date:10/04/2017 CM D/C Disposition:Correction Facility ADT D/C Disposition:Correction Facility Projected Discharge Date:10/04/2017 11:00 AM Transportation at D/C: Discharge Delay Reason: Follow-Up Date:10/04/2017 11:00 AM Discharge Slot: Final Diagnosis: Placement Information Referral Type:*Prison/SNF Referral ID:[id number] Provider Name:[facility] Address 1:[address] Address 2: City:[place] Selection Factors: State:[place] Patient Contact Information Contact Name:CHRIS Relationship: Address:[address] City:[place] Alternate Phone: State/Zip Code:[place] [address] Email: Financial Information Financial Class:Medicare Advantage Plans Primary Plan Desc:[employer] MEDICARE COMPLETE Primary Plan Number:[id number] Secondary Plan Desc: Secondary Plan Number: Assessment Information LACE LACE Length of stay for Answers: 4-6 days current admission Acuity / Level of Answers: Yes Care: Did the patient have an inpatient admission? Comorbidities - select Answers: Coronary Artery Disease all that apply Diabetes (uncontrolled or controlled) Opioid dependence / Chronic pain Other Notes: HTN # of Emergency department Answers: 0 visits in the last 6 months Score: 15 Date Signed: 10/04/2017 09:58 AM Electronically Signed By:CHERYL Castaneda [facility] CM Progress Note CM Note CM Note Notes: Patient is POD #1 CABG x3. He has orders to transfer from the ICU to the PCU. Patient lives alone but has a supportive son, daughter, and brother. He is open to the ideal of a short term SNF rehab stay if that is recommended for discharge. We discussed [facility] [place]. PT/OT will work with patient over the next few days and make recommendations, as will cardiothoracic surgery. Case Management will facilitate whatever services that patient needs. Date Signed: 09/29/2017 12:26 PM Electronically Signed By:Devora Cook RN [facility] CM Progress Note CM Note CM Note Notes: 10/01/2017 Case Management Note Reviewed chart. PT is recommending SNF rehab. Pt continues to recover from surgery. Case Management will determined d/c plan closer to discharge date. Case Management d/c poc: to be determined. Case Management to follow. Date Signed: 10/01/2017 08:56 AM Electronically Signed By:Daniela Portillo RN [facility] CM Progress Note CM Note CM Note Notes: 10/02/2017 Case Management Note Met w/pt to discuss discharge SNF rehab choices. Pt requested referrals to [place] [facility]. Faxed via [employer] [facility] in [place] accepted pt. [facility] declined pt. Case Management d/c poc: [facility] [place] Case Management to follow. Date Signed: 10/02/2017 03:05 PM Electronically Signed By:Daniela Portillo RN Case Management Discharge Plan Note Case Management Discharge Discharge Order Complete? Answers: Yes Patient to Obtain Answers: Other Notes: [facility] Medications Transportation Arranged Answers: Other Notes: [facility] Transport will Pick (Date 10/04/2017 01:30 PM & Time) EMTALA Complete Answers: No Case Management Transport Answers: Yes Form Complete Faxed Final Orders Answers: Yes Agency/Facility Transfer Answers: Yes Report Printed & Faxed to Receiving Agency Family Notified Answers: No Discharge Comments Notes: spoke to RAMONITA Blunt regarding d/c POC. Pt is being discharged today to [facility]. DC orders sent. provided RAMONITA Blunt w/ phone number to give report. CM available for changes. Plan: [facility] Date Signed: 10/04/2017 09:58 AM Electronically Signed By:CHERYL Castaneda Intervention Information
[2017-10-04] MEDS ORDERED: WARFARIN SODIUM 5 MG TAB PO SCH (16:00)
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
--- NOTE | 2017-10-09 12:15 | PQFORM ---
PHYSICIAN QUERY FORM Needs Your Response This query form is being sent to you to assure this patient record is coded properly. Please respond to the question below: E TAILER QUESTION: Dr Becerra Progress Notes document Acute Hypoxic Respiratory Failure but this was not indicated on the Discharge Summary. Did this patient have Acute Hypoxic Respiratory Failure ? ___ Yes _x__ No ___ Other (please specify ) ___ Unable to Determine Thank You Celsa COLEY Clinical Psychiatrist INSTRUCTIONS FOR RESPONSE: Answer question by clicking on the "Edit Document" button. Move cursor to area below the stars. When complete, hit "Save." Click on the "Sign" button, then click "Sign" again. Type in your PIN and hit "Enter." MTDD
== END 2017-10-04 14:05 | DRG 220 ==
LOC: F2N 05:40 → F2W 09-29 14:55
PROVIDERS: ADMIT Thoracic Surgery (Cardiothoracic Vascular Surgery); ATTEND Thoracic Surgery (Cardiothoracic Vascular Surgery)
DX: I25.118 Atherosclerotic heart disease of native coronary artery with other forms of angina pectoris (principal); I34.0 Nonrheumatic mitral (valve) insufficiency; D62 Acute posthemorrhagic anemia; I47.1 Supraventricular tachycardia; I11.0 Hypertensive heart disease with heart failure; I50.9 Heart failure, unspecified; E11.9 Type 2 diabetes mellitus without complications; I25.5 Ischemic cardiomyopathy; G47.33 Obstructive sleep apnea (adult) (pediatric); K21.9 Gastro-esophageal reflux disease without esophagitis; M10.9 Gout, unspecified; E78.5 Hyperlipidemia, unspecified; F17.210 Nicotine dependence, cigarettes, uncomplicated
CPT/HCPCS: 82435-PO; 82565-PO; 82947-PO; 83605-PO; 84132-PO; 84295-PO; 84520-PO; 85014-PO; 97116-GP; 97161-GP; 97165-GO; 97530-GO; 97530-GP; 97535-GO; G8978-GP-CK; G8979-GP-CI; G8987-GO-CJ; G8988-GO-CI; J0153; J0282; J0690; J1100; J1170; J1265; J1644; J1815; J1885; J1940; J2001; J2150; J2250; J2260; J2370; J2440; J2704; J2720; J2930; J3010; J3475; J3480; J7060; P9041

== ENCOUNTER → 2017-10-20 | Outpatient (CLI) | payer OTHER | LOC: FIMAGING 10:15 | PROVIDERS: ATTEND Thoracic Surgery (Cardiothoracic Vascular Surgery) | DX: R05 Cough (principal); J90 Pleural effusion, not elsewhere classified; Z95.1 Presence of aortocoronary bypass graft ==